=== PATIENT | female | born 2000 | race Caucasian/White ===

== ENCOUNTER 2023-04-04 22:25 | Emergency (ER) | payer BC, SELFPAY ==
[2023-04-04 22:48] VITALS: BP 119/65; PULSE 98; RESP 18; TEMP 36.9; BMI 49.6
--- NOTE | 2023-04-04 23:04 | ED_ITS ---
HPI - General Adult General Date Seen: 04/04/23 Chief complaint: Dental/Oral/Mouth Injury/Pain Stated complaint: possible thrush Time Seen by Provider: 04/04/23 22:33 Source: patient Mode of arrival: ambulatory Limitations: no limitations History of Present Illness HPI narrative: Patient is a 22-year-old young woman who presents to rule out thrush. She says that the tongue and roof of mouth have felt mildly achy, she is on a juice cleanse and read online that dietary changes can predispose you to thrush. She is leaving tomorrow for the [employer] and wanted to make sure she did not have thrush before she goes. She has not had any recent antibiotics, no history of diabetes or prior candidal infections. Related Data Allergies Allergy/AdvReac Type Severity Reaction Status Date / Time No Known Drug Allergies Allergy Verified 04/04/23 22:46 Exam Narrative: Exam Narrative: Vital signs reviewed In general, alert, well-appearing young woman. ENT: Oropharynx is normal, no evidence of thrush. Const: Vital Signs, click to edit/add: Vital Signs - 24 hr 04/04/23 22:48 Temperature 98.5 F Pulse Rate [Pulse Oximeter] 98 Respiratory Rate 18 Blood Pressure [Le ft Forearm] 119/65 Oxygen Delivery Me thod Room Air Documenting provider has reviewed patient's vital signs: yes Course Course ED Course: Reassured her of normal exam and the low risk of thrush. Follow-up as needed. Vital Signs Vital signs: Initial Vital Signs Temperature 98.5 F 04/04/23 22:48 Temperature Source Temporal Artery Scan 04/04/23 22:48 Pulse Rate 98 04/04/23 22:48 Respiratory Rate 18 04/04/23 22:48 Blood Pressure 119/65 04/04/23 22:48 Blood Pressure Mean 83 04/04/23 22:48 Oxygen Delivery Method Room Air 04/04/23 22:48 Vital Signs Temperature 98.5 F 04/04/23 22:48 Pulse Rate 98 04/04/23 22:48 Respiratory Rate 18 04/04/23 22:48 Blood Pressure 119/65 04/04/23 22:48 Oxygen Delivery Method Room Air 04/04/23 22:48 Temperature 98.5 F 04/04/23 22:48 Pulse Rate 98 04/04/23 22:48 Respiratory Rate 18 04/04/23 22:48 Blood Pressure 119/65 04/04/23 22:48 Oxygen Delivery Method Room Air 04/04/23 22:48 Discharge Plan Discharge Clinical Impression: Suspected condition not found Patient Disposition: Home, Self-Care Condition: Stable Additional Instructions: Follow-up p.r.n. Stand Alone Forms: [employer] Info Instructions
== END 2023-04-04 23:19 | disposition home or self-care (01) ==
LOC: ED 23:13
PROVIDERS: Emergency Provider Emergency Medicine
DX: Z71.1 Person with feared health complaint in whom no diagnosis is made (principal)
CPT/HCPCS: 99282; 99283

== ENCOUNTER 2024-05-08 14:36 | Outpatient (CLI) | payer BC, SELFPAY ==
--- NOTE | 2024-05-08 14:45 | CRLHL7_ITS ---
For Patients: As a result of the Century Cures Act, medical imaging exams and procedure reports are released immediately into your electronic medical record. You may view this report before your referring provider. If you have questions, please contact your health care provider. INDICATION: Left sided pelvic pain x 1 month. Has IUD and therefore no cycle. COMPARISON: none TECHNIQUE: 2D munoz scale and color Doppler images were acquired of the pelvis using a transabdominal and transvaginal approach. Spectral Doppler evaluation of the ovaries also performed due to the history of pelvic pain. Transabdominal imaging limited due to incomplete bladder distention. FINDINGS: Sonographic images demonstrate a normal size and smooth outer contour of the uterus. Uterus measures 8.7 cm in length by 2.8 cm in AP diameter by 4.5 cm in transverse dimension. The myometrium has a normal uniform echotexture. The endometrial lining measures 3 mm in composite thickness. Good position of an IUD within the endometrial canal. Trace fluid in the endometrial canal noted. The right ovary measures 4.5 x 2.1 x 2.5 cm in size and the left ovary measures 4.6 x 2.5 x 4.3 cm. The ovaries demonstrate normal arterial and venous blood flow on color Doppler analysis. There are no suspicious fluid collections within the cul-de-sac. Simple circumscribed anechoic left ovarian cyst is present measuring 2.4 x 2.3 x 2.3 cm. Normal spectral Doppler evaluation of the ovaries. IMPRESSION: Simple left ovarian cyst is present measuring 2.4 x 2.3 x 2.3 cm. No excess pelvic free fluid or ovarian torsion. Normal position of an IUD within the endometrial canal. Trace endometrial fluid. Dictated by Jhonny Alfonso MD @ 05/09/2024 12:37:52 PM (Electronically Signed)
== END 2024-05-08 14:37 | disposition home or self-care (01) ==
LOC: US 14:38
PROVIDERS: Visit Provider Registered Nurse
DX: R10.2 Pelvic and perineal pain (principal); N83.292 Other ovarian cyst, left side
CPT/HCPCS: 76830; 76856; 80061; 81513; 84443; 87481; 87491; 87591; 87624; 87661; 88142; 93976

== ENCOUNTER 2024-08-03 07:01 | Outpatient (CLI) | payer BC, SELFPAY ==
--- NOTE | 2024-08-03 07:15 | CRLHL7_ITS ---
For Patients: As a result of the Century Cures Act, medical imaging exams and procedure reports are released immediately into your electronic medical record. You may view this report before your referring provider. If you have questions, please contact your health care provider. EXAM: MRI OF THE RIGHT ANKLE, WITHOUT CONTRAST CLINICAL INDICATION: Ankle pain. Contracture. PRIOR SURGERY: None. COMPARISON PLAIN FILMS: 23 September 2023 COMPARISON CROSS-SECTIONAL IMAGING STUDIES: MRI 30 September 2023. TECHNICAL: Axial PD, PD fat-sat and T2 fat-sat, sagittal PD, T2 and STIR and coronal PD and T2 right Ankle sequences without contrast. FINDINGS: OSSEOUS STRUCTURES: Resolved prior marrow edema signal in the calcaneus, tibia and talus. Resolved marrow edema in the cuboid. No new marrow edema. No fracture or bone lesion. JOINT SPACES: The ankle and subtalar joint spaces are maintained without joint effusion. No talar dome osteochondral lesion. No joint bodies are identified. The talar-navicular and calcaneocuboid joint spaces are maintained. Trace effusion calcaneocuboid joint. Upper normal fluid talonavicular joint. Joint spaces within the visualized midfoot and at the midfoot-forefoot junction are maintained. LIGAMENTS: Syndesmotic Ligaments: The anterior and posterior syndesmotic ligaments are intact. Lateral Ligaments: The anterior talofibular, calcaneofibular and posterior talofibular ligaments are intact. Medial Ligaments: The superficial and deep components of the deltoid ligament complex are maintained. Spring Ligaments: The calcaneonavicular spring ligament complex is intact. TENDONS: Flexor Tendons: The posterior tibial, flexor digitorum longus and flexor hallucis longus tendons are intact. Extensor Tendons: The anterior extensor tendons are intact. Achilles Tendon: The Achilles tendon is intact without tendinosis, tear or peritendinitis changes. Peroneal Tendons: The peroneus longus and brevis tendons are intact. No accessory peroneus quartus. TARSAL TUNNEL: The soft tissues of the tarsal tunnel are normal without mass or fluid collection. No abnormality along the course of the medial or lateral plantar nerves. SINUS TARSI: The structures of the sinus tarsi appear normal. No disruption of the interosseous ligaments or significant effacement of fat. PLANTAR SOFT TISSUES: The plantar fascia is intact. There is no significant plantar calcaneal spur. No atrophy or edema of the abductor digiti minimi muscle belly. OTHER FINDINGS: There is no soft tissue mass or fluid collection. IMPRESSION: 1. Resolution of posttraumatic contusions ankle and hindfoot. Trace residual effusion calcaneocuboid and talonavicular Chopart joints. Resolution of tibiotalar ankle joint effusion. Dictated by Constantin Hughes MD @ 08/03/2024 11:49:06 AM (Electronically Signed)
== END 2024-08-03 07:02 | disposition home or self-care (01) ==
LOC: MRI 07:02
PROVIDERS: Visit Provider Podiatrist
DX: M25.571 Pain in right ankle and joints of right foot (principal); M25.471 Effusion, right ankle; M24.571 Contracture, right ankle; M24.574 Contracture, right foot
CPT/HCPCS: 73721

== ENCOUNTER 2024-08-26 09:00 | Outpatient (RCR) | payer BC, SELFPAY | END 2024-10-19 11:52 | disposition home or self-care (01) | PROVIDERS: Visit Provider Podiatrist | DX: M24.571 Contracture, right ankle (principal); M24.574 Contracture, right foot; Z51.89 Encounter for other specified aftercare | CPT/HCPCS: 97035; 97110; 97140; 97162 ==

== ENCOUNTER 2024-09-25 08:18 | Outpatient (CLI) | payer BC, SELFPAY ==
--- NOTE | 2024-09-25 08:15 | CRLHL7_ITS ---
For Patients: As a result of the Century Cures Act, medical imaging exams and procedure reports are released immediately into your electronic medical record. You may view this report before your referring provider. If you have questions, please contact your health care provider. EXAM: MRI OF THE RIGHT FOOT, WITHOUT CONTRAST CLINICAL INDICATION: One year history of foot pain. COMPARISON PLAIN FILMS: 09/23/2023. COMPARISON CROSS-SECTIONAL IMAGING STUDIES: 08/03/2024 and 09/30/2023 examinations. TECHNICAL: Axial, sagittal and coronal T1, PD and STIR images. FINDINGS: OSSEOUS STRUCTURES: Moderate amount of intramedullary edema in the head, neck of the talus and medial body of the talus consistent with a contusion or stress reaction. Findings are new. No fractures are evident. No osseous lesion. JOINT SPACES: The articular cartilage is intact. No subchondral changes. No joint effusion. LIGAMENTS: The Lisfranc ligament is intact. TMT joint alignment is maintained. The collateral ligaments of the MTP joints are intact. TENDONS AND MUSCLES: The flexor and extensor tendons are intact. The distal peroneus longus and brevis tendons are intact. No muscle atrophy or edema. SOFT TISSUES: The visualized plantar aponeurosis is intact. No Tse???s neuroma or intermetatarsal bursitis. No soft tissue mass, fluid collection or ganglion. IMPRESSION: 1. New intramedullary edema in the head, neck and medial body of the talus consistent with a contusion or stress reaction. 2. No fractures are evident. 3. Remainder unremarkable. Dictated by Constantin Dukes MD @ 09/25/2024 4:10:35 PM (Electronically Signed)
--- NOTE | 2024-09-25 09:15 | CRLHL7_ITS ---
For Patients: As a result of the Century Cures Act, medical imaging exams and procedure reports are released immediately into your electronic medical record. You may view this report before your referring provider. If you have questions, please contact your health care provider. Indication: Foot pain. Technique: Multiplanar multisequence noncontrast MR images of the lumbar spine. Comparison: None. Findings: The lumbar lordosis is preserved. Vertebral body heights are maintained. No acute fracture or spondylolisthesis. No T1 hypointense lesions or marrow edema. Normal conus terminates at L1. T12-L1 through L3-4: No spinal canal or neural foraminal narrowing. L4-5: Mild disc degeneration. No spinal canal or neural foraminal narrowing. L5-S1: Mild disc degeneration. Annular bulge. No spinal canal or neural foraminal narrowing. Impression: Minimal lumbar spondylosis without spinal canal or neural foraminal stenosis. Dictated by Toño Guzmán MD @ 09/25/2024 10:44:29 AM (Electronically Signed)
== END 2024-09-25 08:19 | disposition home or self-care (01) ==
LOC: MRI 08:19
PROVIDERS: Visit Provider Family Medicine
DX: M54.50 Low back pain, unspecified (principal); M47.896 Other spondylosis, lumbar region; M79.671 Pain in right foot; R60.1 Generalized edema
CPT/HCPCS: 72148; 73718